=== PATIENT | male | born 1970 | race Caucasian/White ===

== ENCOUNTER 2020-08-12 13:44 | Day surgery (SDC) | payer OTHER ==
[2020-08-12] MEDS ORDERED: Depo-Medrol 40 MG/ML IM ONE (13:45)
[2020-08-12] MEDS ORDERED: Sodium Chloride 0.9(Preservative Free) 10 ML IJ ONE (13:45)
[2020-08-12] MEDS ORDERED: DIPRIVAN 200 MG/20 ML IV ONE ×2 (15:18→15:24)
[2020-08-12] MEDS ORDERED: Lactated Ringers 1,000 ML IV ONE (16:14)
--- NOTE | 2020-08-12 16:48 | XRAY ---
1 minute and 5 seconds fluoroscopy time in surgery for left L4-S1 transforaminal BRYON.
--- NOTE | 2020-08-12 16:49 | XRAY ---
Indication: Left L4-S1 transforaminal BYRON. Intraoperative fluoroscopy provided for 1 minute 5 seconds. 4 digital spot images submitted for interpretation demonstrates posterior needle tips projecting over the expected left L4 and L5 nerve roots. Small amount of contrast injected for needle tip placement. Correlate with intraoperative findings/report.
== END 2020-08-12 15:55 | disposition home or self-care (01) ==
LOC: SDC-PAIN 13:44
PROVIDERS: ATTEND Psychiatry & Neurology Pain Medicine
DX: M54.16 Radiculopathy, lumbar region (principal); I10 Essential (primary) hypertension; G47.30 Sleep apnea, unspecified; F41.8 Other specified anxiety disorders; Z79.899 Other long term (current) drug therapy
CPT/HCPCS: 64483; 64484; 72100; 77003; J1030; J2704; Q9966

== ENCOUNTER 2020-11-25 12:46 | Day surgery (SDC) | payer OTHER ==
[2020-11-25] MEDS ORDERED: Depo-Medrol 40 MG/ML IM ONE (12:47)
[2020-11-25] MEDS ORDERED: Sodium Chloride 0.9(Preservative Free) 10 ML IJ ONE (12:47)
[2020-11-25] MEDS ORDERED: DIPRIVAN 200 MG/20 ML IV ONE (14:48)
[2020-11-25] MEDS ORDERED: Lactated Ringers 1,000 ML IV ONE (14:56)
--- NOTE | 2020-11-25 16:46 | XRAY ---
Indication: Right L4-L5 transforaminal BRYON. Intraoperative fluoroscopy provided for 1 minute 18 seconds. 2 digital spot image submitted for interpretation demonstrates posterior needle tips projecting over the expected right L4 and L5 nerve roots. Small amount of contrast injected for needle tip placement. Correlate with intraoperative findings/report.
--- NOTE | 2020-11-25 17:02 | XRAY ---
1 minute and 18 seconds of fluoroscopy was used in surgery for a right L4-L5, L5-S1 transforaminal BRYON.
== END 2020-11-25 15:25 | disposition home or self-care (01) ==
LOC: SDC-PAIN 12:46
PROVIDERS: ATTEND Psychiatry & Neurology Pain Medicine
DX: M54.16 Radiculopathy, lumbar region (principal); Z79.899 Other long term (current) drug therapy
CPT/HCPCS: 64483; 64484; 72100; 77003; J1030; J2704; Q9966

== ENCOUNTER 2021-06-24 12:31 | Day surgery (SDC) | payer OTHER ==
[2021-06-24] MEDS ORDERED: Depo-Medrol 40 MG/ML IM ONE (12:32)
[2021-06-24] MEDS ORDERED: Sodium Chloride 0.9% 10 ML FLUSH Syringe IJ ONE (12:32)
[2021-06-24] MEDS ORDERED: DIPRIVAN 200 MG/20 ML IV ONE ×2 (13:37→13:44)
[2021-06-24] MEDS ORDERED: Lactated Ringers 1,000 ML IV ONE (13:49)
--- NOTE | 2021-06-25 09:42 | XRAY ---
Indication: Left L4-S1 transforaminal BRYON. Intraoperative fluoroscopy provided for 1 minutes 4 seconds. 4 digital spot image submitted for interpretation demonstrates posterior needle tips projecting over the expected left L4 and L5 nerve roots. Small amount of contrast injected for needle tip placement. Correlate with intraoperative findings/report.
--- NOTE | 2021-06-25 10:19 | XRAY ---
1 minute fluoroscopy time in surgery for left L4-S1 transforaminal BRYON.
== END 2021-06-24 14:04 | disposition home or self-care (01) ==
LOC: SDC-PAIN 12:31
PROVIDERS: ATTEND Psychiatry & Neurology Pain Medicine
DX: M54.16 Radiculopathy, lumbar region (principal); I10 Essential (primary) hypertension; Z79.899 Other long term (current) drug therapy
CPT/HCPCS: 64483; 64484; 72100; 77003; J1030; J2704; Q9966

== ENCOUNTER 2021-09-01 11:02 | Day surgery (SDC) | payer OTHER ==
[2021-09-01] MEDS ORDERED: Depo-Medrol 40 MG/ML IM ONE (11:03)
[2021-09-01] MEDS ORDERED: Sodium Chloride 0.9(Preservative Free) 10 ML IJ ONE (11:03)
[2021-09-01] MEDS ORDERED: Lactated Ringers 1,000 ML IV ONE (13:31)
[2021-09-01] MEDS ORDERED: DIPRIVAN 200 MG/20 ML IV ONE ×2 (13:41→13:51)
[2021-09-01] MEDS ORDERED: MORPHINE SULFATE 2 MG INJ ONE (14:02)
--- NOTE | 2021-09-01 14:48 | XRAY ---
Indication: Right L4-S1 transforaminal BRYON. Intraoperative fluoroscopy provided for 49 seconds. 5 digital spot images submitted for interpretation demonstrates posterior needle tips projecting over the expected right L4 and L5 nerve roots. Small amount of contrast injected for needle tip placement. Correlate with intraoperative findings/report.
--- NOTE | 2021-09-01 14:50 | XRAY ---
49 seconds of fluoroscopy was used in surgery for a right L4-S1 transforaminal BRYON.
== END 2021-09-01 14:10 | disposition home or self-care (01) ==
LOC: SDC-PAIN 11:02
PROVIDERS: ATTEND Psychiatry & Neurology Pain Medicine
DX: M54.16 Radiculopathy, lumbar region (principal); I10 Essential (primary) hypertension; Z79.899 Other long term (current) drug therapy
CPT/HCPCS: 64483; 64484; 72100; 77003; J1030; J2270; J2704; Q9966

== ENCOUNTER 2022-01-26 12:59 | Day surgery (SDC) | payer OTHER ==
[2022-01-26] MEDS ORDERED: Sodium Chloride 0.9(Preservative Free) 10 ML IJ ONE (13:00)
[2022-01-26] MEDS ORDERED: Depo-Medrol 40 MG/ML IM ONE (13:00)
[2022-01-26] MEDS ORDERED: DIPRIVAN 200 MG/20 ML IV ONE (14:45)
[2022-01-26] MEDS ORDERED: Lactated Ringers 1,000 ML IV ONE (15:49)
--- NOTE | 2022-01-26 19:27 | XRAY ---
Indication: Left L4-S1 transforaminal BRYON. Intraoperative fluoroscopy provided for 56 seconds. 5 digital spot image submitted for interpretation demonstrates posterior needle tips projecting over the expected left L4 and L5 nerve roots. Small amount of contrast injected for needle tip placement. Correlate with intraoperative findings/report.
--- NOTE | 2022-01-26 19:35 | XRAY ---
56 seconds of fluoroscopy was used in surgery for a left L4-S1 transforaminal BRYON.
== END 2022-01-26 15:20 | disposition home or self-care (01) ==
LOC: SDC-PAIN 12:59
PROVIDERS: ATTEND Psychiatry & Neurology Pain Medicine
DX: M54.16 Radiculopathy, lumbar region (principal); I10 Essential (primary) hypertension; Z79.899 Other long term (current) drug therapy
CPT/HCPCS: 64483; 64484; 72100; 77003; J1030; J2704; Q9966

== ENCOUNTER 2022-08-10 11:53 | Day surgery (SDC) | payer OTHER ==
[2022-08-10] MEDS ORDERED: Sodium Chloride 0.9(Preservative Free) 10 ML IJ ONE (11:54)
[2022-08-10] MEDS ORDERED: Depo-Medrol 40 MG/ML IM ONE (11:54)
[2022-08-10] MEDS ORDERED: DIPRIVAN 200 MG/20 ML IV ONE (14:38)
[2022-08-10] MEDS ORDERED: Versed 2 MG/2 ML Injection ONE (14:42)
--- NOTE | 2022-08-10 15:31 | XRAY ---
Indication: Right L3-L5 transforaminal BRYON. Intraoperative fluoroscopy provided for 36 seconds. 5 digital spot image submitted for interpretation demonstrates posterior needle tips projecting over the expected right L3 and L4 nerve roots. Small amount of contrast injected for needle tip placement. Correlate with intraoperative findings/report.
[2022-08-10] MEDS ORDERED: Lactated Ringers 1,000 ML IV ONE (15:44)
--- NOTE | 2022-08-10 17:05 | XRAY ---
36 seconds of fluoroscopy was used in surgery for a right L3-L5 transforaminal BRYON.
== END 2022-08-10 15:10 | disposition home or self-care (01) ==
LOC: SDC-PAIN 11:53
PROVIDERS: ATTEND Psychiatry & Neurology Pain Medicine
DX: M54.16 Radiculopathy, lumbar region (principal); Z79.899 Other long term (current) drug therapy
CPT/HCPCS: 64483; 64484; 72100; 77003; J1030; J2250; J2704; Q9966

== ENCOUNTER 2024-06-13 11:17 | Day surgery (SDC) | payer MEDICAID ==
[2024-06-13] MEDS ORDERED: Sodium Chloride 0.9(Preservative Free) 10 ML IJ ONE (11:18)
[2024-06-13] MEDS ORDERED: dexAMETHasone sodium phosphate IJ ONE (11:18)
[2024-06-13] MEDS ORDERED: propofoL IV ONE (13:15)
[2024-06-13] MEDS ORDERED: Xylocaine-Mpf 2% 5 Ml Vial ONE (13:16)
[2024-06-13] MEDS ORDERED: Versed 2 MG/2 ML Injection ONE (13:19)
--- NOTE | 2024-06-13 14:32 | XRAY ---
Indication: Left L4-S1 transforaminal BRYON. Intraoperative fluoroscopy provided for 33 seconds. 5 digital spot image submitted for interpretation demonstrates posterior needle tips projecting over expected left L4 and L5 nerve roots. Small amount of contrast injected for needle tip placement. Correlate with intraoperative findings/report.
--- NOTE | 2024-06-13 14:47 | XRAY ---
33 seconds of fluoroscopy was used in surgery for a left L4-S1 transforaminal BRYON.
== END 2024-06-13 13:45 | disposition home or self-care (01) ==
LOC: SDC-PAIN 11:17
PROVIDERS: ATTEND Psychiatry & Neurology Pain Medicine
DX: M54.16 Radiculopathy, lumbar region (principal); E11.9 Type 2 diabetes mellitus without complications
CPT/HCPCS: 64483; 64484; 72100; 77003; 82947; J1100; J2250; J2704; Q9966

== ENCOUNTER 2025-02-26 07:49 | Day surgery (SDC) | payer MEDICAID ==
[2025-02-26] MEDS ORDERED: Sodium Chloride 0.9(Preservative Free) 10 ML IJ ONE (07:50)
[2025-02-26] MEDS ORDERED: Xylocaine-Mpf 2% 5 Ml Vial ONE (09:46)
[2025-02-26] MEDS ORDERED: propofoL IV ONE (09:46)
[2025-02-26] MEDS ORDERED: Lactated Ringers 1,000 ML IV ONE (11:00)
--- NOTE | 2025-02-26 12:30 | XRAY ---
Indication: Left L4-S1 transforaminal BRYON. Intraoperative fluoroscopy provided for 22 seconds. 7 digital spot image submitted for interpretation demonstrates posterior needle tips projecting posterior to left L4 and L5 nerve roots. Small amount of contrast injected for needle tip placement. Correlate with intraoperative findings/report.
--- NOTE | 2025-02-26 12:53 | XRAY ---
22 seconds of fluoroscopy was used in surgery for a left L4-S1 transforaminal BRYON.
== END 2025-02-26 10:15 | disposition home or self-care (01) ==
LOC: SDC-PAIN 07:49
PROVIDERS: ATTEND Psychiatry & Neurology Pain Medicine
DX: M54.16 Radiculopathy, lumbar region (principal); E11.9 Type 2 diabetes mellitus without complications